=== PATIENT | female | born 1985 | race Caucasian/White ===

== ENCOUNTER 2017-02-11 05:51 | Emergency (ER) | payer OTHER ==
[~2017-02-11] VITALS: Ht 160 cm; Wt 63.5 kg
[2017-02-11 05:55] VITALS: BP 126/98
== END 2017-02-11 06:23 | disposition home or self-care (01) ==
LOC: ER 05:51
DX: R09.89 Other specified symptoms and signs involving the circulatory and respiratory systems (principal); J45.909 Unspecified asthma, uncomplicated; F17.200 Nicotine dependence, unspecified, uncomplicated; B19.20 Unspecified viral hepatitis C without hepatic coma
CPT/HCPCS: 99281; A4606; Z7610; Z7502

== ENCOUNTER 2017-05-14 18:25 | Inpatient (IN) | payer OTHER ==
[~2017-05-14] VITALS: Ht 160 cm; Wt 63.5 kg
--- NOTE | 2017-05-14 18:25 | NUR ---
BIB RA 38 FROM HOME C/O RLQ AND LLQ ABD PAIN X 3DAYS +NAUSEA - VOMITING PT VERBALIZED "TOOK 15 BABY ASPIRIN AND LITTLE BIT OF METH"
--- NOTE | 2017-05-14 18:40 | NUR ---
RAC #20 IV ACCESS BLOOD SAMPLE COLLECTED SENT TO LAB
[2017-05-14] MEDS ORDERED: KETOROLAC TROMETHAMINE 15 MG/ML VIAL ONE (18:44)
[2017-05-14 18:47] LABS: BASOPHILS # (AUTO) 0.4 /CMM (0.0-0.2); BASOPHILS % (AUTO) 2.2 % (0.0-2.0); EOSINOPHILS # (AUTO) 1.2 /CMM (0.0-0.7); EOSINOPHILS % (AUTO) 7.1 % (0.0-6.0); HEMATOCRIT 43 % (33-45); HEMOGLOBIN 14.3 g/dL (11.5-14.8); LYMPHOCYTES # (AUTO) 1.2 /CMM (0.8-4.8); LYMPHOCYTES % (AUTO) 7.5 % (20.0-44.0); MEAN CORPUSCULAR HEMOGLOBIN 29 PG (26.0-33.0); MEAN CORPUSCULAR HGB CONC 34 g/dl (31.0-36.0); MEAN CORPUSCULAR VOLUME 87 fL (82-100); MONOCYTES % (AUTO) 6.2 % (2.0-12.0); NEUTROPHILS # (AUTO) 12.6 /CMM (1.8-8.9); PLATELET COUNT (AUTO) 212 /CMM (150-450); RDW COEFFICIENT OF VARIATION 12.4 (11.5-15.0); RED BLOOD CELL COUNT(AUTO) 4.93 MIL/uL (4.0-5.2); WHITE BLOOD COUNT (AUTO) 16.4 K/uL (4.3-11.0)
--- NOTE | 2017-05-14 18:48 | NUR ---
URINE SAMPLE COLLECTED SENT TO LAB
--- NOTE | 2017-05-14 18:49 | NUR ---
PT TAKEN TO CT SCAN VIA WC
[2017-05-14 18:57] LABS: CALCIUM, SERUM 8.2 mg/dL (8.5-10.1); CREATININE 0.8 mg/dL (0.6-1.3)
[2017-05-14] MEDS ORDERED: SODIUM BICARBONATE SYR 50 MEQ/50 ML DISP.SYRIN IV ONE (19:00)
[2017-05-14] MEDS ORDERED: KETOROLAC TROMETHAMINE INJ 30 MG/ML VIAL IV ONE (19:00)
[2017-05-14] MEDS ORDERED: IV NS 0.9% 1,000 ML BAG IV ONE ×2 (19:00→19:30)
[2017-05-14 19:03] LABS: ALBUMIN 3.3 g/dL (3.4-5.0); BILIRUBIN,DIRECT 0.1 mg/dL (0.0-0.2); BILIRUBIN,TOTAL 0.5 mg/dL (0.2-1.0); TOTAL PROTEIN, SERUM 7.6 g/dL (6.4-8.2)
[2017-05-14 19:05] LABS: APPEARANCE,URINE Clear (CLEAR); BILIRUBIN,URINE Negative (NEGATIVE); BLOOD, URINE Moderate Ery/uL (NEGATIVE); COLOR,URINE Yellow (YELLOW); KETONES,URINE Trace (NEGATIVE); LEUKOCYTE ESTERASE ,URINE Moderate (NEGATIVE); NITRITE, URINE Negative (NEGATIVE); PROTEIN,URINE 30 mg/dl (NEGATIVE); UGLUCOSE Negative (NEGATIVE); UROBILINOGEN,URINE 0.2 EU/dL (0.2)
[2017-05-14 19:06] LABS: PREGNANCY TEST URINE QUAL NEGATIVE (NEGATIVE)
--- NOTE | 2017-05-14 19:10 | NUR ---
CALLED PHARMACY NO ANSWER FOR SODIUM BICARB FAXED TO NURSING MEDICAL RECORDS ANALYST
--- NOTE | 2017-05-14 19:15 | NUR ---
DIRECTOR VIDEO AT BEDSIDE
[2017-05-14 19:16] LABS: ALBUMIN 3.4 g/dL (3.4-5.0); BILIRUBIN,DIRECT 0.1 mg/dL (0.0-0.2); BILIRUBIN,TOTAL 0.4 mg/dL (0.2-1.0); TOTAL PROTEIN, SERUM 7.6 g/dL (6.4-8.2)
--- NOTE | 2017-05-14 19:16 | NUR ---
GAVE REPORT TO SARAH FOR DOREEN
[2017-05-14 19:18] LABS: ABG BASE EXCESS -2.1 mmol/L; ABG OXYGEN SATURATION 97.1 % (92.0-98.5); ABG PCO2 28.2 mmHg (35.0-45.0); ABG PH 7.472 (7.350-7.450); ABG PO2 93.7 mmHg (75.0-100.0); AaDO2 22.3 mmHg; COHb 0.8 % (0.5-1.5); MetHb 0.3 % (0.0-1.5); SITE, ABG Right Radial; VENT MODE, BG Room Air
[2017-05-14 19:24] LABS: BACTERIA,URINE Moderate /HPF (None Seen); SQUAMOUS EPITHELIAL CELL,UR Moderate /HPF (None Seen); WBC,URINE 21-50 /HPF (0-3)
--- NOTE | 2017-05-14 19:27 | NUR ---
SPOKE WITH ALYCIA AT POISON CONTROL. HE RECOMMENDS REPEATING SALICYLATE Q 3-4 HOURS. IF DOWNWARD TREND IS NOTED AND SYMPTOMS IMPROVE, PT SHOULD BE FINE FOR DISCHARGE. SHOULD SALICYLATE LEVELS INCREASE ALKALIZING URINE MAY PROVIDE BENEFIT.
--- NOTE | 2017-05-14 19:28 | NUR ---
REPORT RECEIVED BY JERRY RODRIGUEZ FOR DOREEN.
[2017-05-14] MEDS ORDERED: CEFTRIAXONE 1GM BAG (ER ONLY) 50 ML IV ONE (19:38)
--- NOTE | 2017-05-14 19:50 | NUR ---
CHANDLER PIEDRA AT BEDSIDE SPEAKING TO PT REGARDING ADMISSION.
--- NOTE | 2017-05-14 19:52 | NUR ---
CALLED DEX FOR READ ON CT
--- NOTE | 2017-05-14 19:53 | NUR ---
TELE 102
[2017-05-14] MEDS ORDERED: CEFTRIAXONE 1GM BAG (ER ONLY) 1 GM/50 ML PIGGYBACK IV ONE (20:00)
--- NOTE | 2017-05-14 20:03 | NUR ---
DR. GREEN SPEAKING TO PT REGARDING RESULTS.
--- NOTE | 2017-05-14 20:05 | NUR ---
BED CHANGED TO 111-1 TELE
[2017-05-14] MEDS ORDERED: DICYCLOMINE HCL INJ 20 MG/2 ML AMPUL IM ONE ×2 (20:09→20:30)
[2017-05-14 20:34] VITALS: BP 107/70
[2017-05-14] MEDS ORDERED: ZOLPIDEM TARTRATE 5 MG TABLET PO PRN (21:00)
[2017-05-14] MEDS ORDERED: ENOXAPARIN SODIUM 40 MG/0.4 ML DISP.SYRIN SQ SCH (21:00)
[2017-05-14] MEDS ORDERED: ONDANSETRON HCL/PF 4 MG/2 ML VIAL IVP PRN (21:00)
[2017-05-14] MEDS ORDERED: MAGNESIUM HYDROXIDE 30 ML UDC PO PRN (21:00)
[2017-05-14] MEDS ORDERED: MAG HYDROX/AL HYDROX/SIMETH 30 ML UDC PO PRN (21:00)
[2017-05-14] MEDS ORDERED: MORPHINE SULFATE INJ 2 MG/ML DISP.SYRIN IV PRN (21:00)
[2017-05-14] MEDS ORDERED: ACETAMINOPHEN 325 MG TABLET PO PRN (21:00)
[2017-05-14] MEDS ORDERED: HYDROCODONE/APAP 5/325MG 1 EACH TABLET PO PRN (21:00)
[2017-05-14] MEDS ORDERED: MORPHINE SULFATE INJ 4 MG/ML DISP.SYRIN ONE (21:10)
[2017-05-14] MEDS ORDERED: ENOXAPARIN SODIUM 40 MG/0.4 ML DISP.SYRIN SQ ONE (21:11)
[2017-05-14] MEDS: IV NS 0.9% 1,000 ML IV PRN (21:11)
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
[2017-05-15] VITALS: BP_SYST 106; BP_SYST 107; BP_DIAS 68; BP_DIAS 69
--- NOTE | 2017-05-15 00:09 | NUR ---
TRANSPORTATION MECHANIC: PT COMFORTABLY SLEEPING, NO DISTRESS, O2 SAT 100% ON ROOM AIR. PAIN SCORE 4/10, MORPHINE 4 MG IV PRN GIVEN AT 2114. RECHECKED SALICYLATES LEVEL 18.6 TRENDING DOWN FROM PREVIOUS LEVEL . IV FLUID NS AT 125 ML/HR ONGOING. KEEP MONITORING...
[2017-05-15] MEDS ORDERED: ACETAMINOPHEN 325 MG TABLET ONE (00:20)
[2017-05-15 04:00] VITALS: BP_SYST 104; BP_SYST 107; BP_DIAS 69
[2017-05-15 07:16] LABS: BASOPHILS % (AUTO) 0.2 % (0.0-2.0); EOSINOPHILS # (AUTO) 0.4 /CMM (0.0-0.7); EOSINOPHILS % (AUTO) 2.7 % (0.0-6.0); HEMATOCRIT 37 % (33-45); HEMOGLOBIN 12.8 g/dL (11.5-14.8); LYMPHOCYTES # (AUTO) 1.9 /CMM (0.8-4.8); LYMPHOCYTES % (AUTO) 13.7 % (20.0-44.0); MEAN CORPUSCULAR HEMOGLOBIN 30 PG (26.0-33.0); MEAN CORPUSCULAR HGB CONC 34 g/dl (31.0-36.0); MEAN CORPUSCULAR VOLUME 87 fL (82-100); MONOCYTES # (AUTO) 0.9 /CMM (0.1-1.30); MONOCYTES % (AUTO) 6.3 % (2.0-12.0); NEUTROPHILS # (AUTO) 10.7 /CMM (1.8-8.9); NEUTROPHILS % (AUTO) 77.1 % (43.0-81.0); PLATELET COUNT (AUTO) 177 /CMM (150-450); RED BLOOD CELL COUNT(AUTO) 4.33 MIL/uL (4.0-5.2); WHITE BLOOD COUNT (AUTO) 13.9 K/uL (4.3-11.0)
[2017-05-15 07:34] LABS: CALCIUM, SERUM 7.5 mg/dL (8.5-10.1); CREATININE 0.6 mg/dL (0.6-1.3); MAGNESIUM 1.5 mg/dL (1.8-2.4); PHOSPHORUS 3.5 mg/dL (2.5-4.9); POTASSIUM 3.1 mmol/L (3.5-5.1)
--- NOTE | 2017-05-15 07:43 | NUR ---
INITIAL HUMAN RESOURCES OPERATIONS MANAGER NOTE RCVD PT AWAKE AND ALERT SHOWING NO S/O DISTRESS OR C/O PAIN. SR ON TELE HR 65. ON RA WITH GOOD SATURATION. IV SITE C/D/I/PATENT. IVF INFUSING NO S/O INFILTRATION/PHLEBITIS OBSERVED. WILL CONTINUE TO MONITOR PT FOR SAFETY AND COMFORT. CALL LIGHT WITHIN REACH. BED IN LOW AND LOCKED POSITION.
[2017-05-15 08:00] VITALS: BP 101/70
[2017-05-15] MEDS ORDERED: CEFTRIAXONE 1 G in IV D5W 50 ML IV SCH (09:00)
[2017-05-15] MEDS: IV NS 0.9% 1,000 ML IV PRN (09:17)
--- NOTE | 2017-05-15 10:41 | NUR ---
TIE BUYER NOTE DR. DONG INFORMED OF PT'S DECREASED K AND MG LEVEL THIS AM. MD WILL REVIEW RESULTS AND ORDER NEEDED.
[2017-05-15] MEDS ORDERED: SODIUM BICARBONATE SYR 50 MEQ/50 ML DISP.SYRIN IV ONE (11:21)
[2017-05-15] MEDS: Magnesium 1GM/D5W 100ML PREMIX 100 ML IV SCH ×2 (11:46→12:58)
[2017-05-15] MEDS: POTASSIUM CL. PREMIX PERIPHER. 50 ML IV SCH ×4 (11:49→16:14)
[2017-05-15 12:00] VITALS: BP_SYST 101; BP_SYST 95; BP_DIAS 64; BP_DIAS 70
[2017-05-15] MEDS ORDERED: MAGNESIUM OXIDE 400 MG TABLET PO ONE (12:00)
[2017-05-15] MEDS ORDERED: POTASSIUM CHLORIDE 20 MEQ TAB.PRT.SR PO ONE (12:00)
[2017-05-15 16:00] VITALS: BP 105/64
--- NOTE | 2017-05-15 18:39 | NUR ---
FINAL SHOW DESIGN SUPERVISOR NOTE PT D/C HOME ACCOMPANIED BY FRIEND TRANSPORTED VIA [facility]I PROVIDED BY HOSPITAL. PT IN STABLE CONDITION, AMBULATORY WITH STEADY GAIT. VITAL SIGNS STABLE. IV ACCESS DISCONTINUED, CATHETER TIP INTACT. PRESSURE DRESSING APPLIED. PT INSTRUCTED TO SEE PRIMARY WITHIN ONE WEEK FROM TODAY. PT ACKNOWLEDGED INFORMATION. BELONGINGS SHEET SIGNED BY PT WHO STATES THAT NOTHING WAS MISSING.
== END 2017-05-15 18:33 | disposition home or self-care (01) | DRG 812 ==
LOC: ER 18:27 → TELE1 20:11
PROVIDERS: ADMIT Nurse Practitioner Acute Care; ATTEND Nurse Practitioner Acute Care
DX: T39.011A Poisoning by aspirin, accidental (unintentional), initial encounter (principal); N30.00 Acute cystitis without hematuria; Y92.89 Other specified places as the place of occurrence of the external cause; B96.89 Other specified bacterial agents as the cause of diseases classified elsewhere; J45.909 Unspecified asthma, uncomplicated; F15.10 Other stimulant abuse, uncomplicated; N64.4 Mastodynia; Z86.19 Personal history of other infectious and parasitic diseases; F17.200 Nicotine dependence, unspecified, uncomplicated
CPT/HCPCS: 36415; 36600; 71010-TC; 71250-TC; 80048-TC; 80076-TC; 80305; 81000-TC; 83690-TC; 83735-TC; 84100-TC; 84703-TC; 85025-TC; 87081-TC; 87086-TC; A4606; G0480; J0500; J0696; J1650; J1885; J2270; J3475; J3480; J3490; J7030; J7060; Z7610

== ENCOUNTER 2017-10-31 03:28 | Emergency (ER) | payer OTHER ==
[~2017-10-31] VITALS: Ht 160 cm; Wt 67.1 kg
[2017-10-31] MEDS ORDERED: ASPIRIN 325 MG TABLET PO ONE (05:30)
--- NOTE | 2017-10-31 05:30 | NUR ---
BB SELF WITH C/O CHEST PAIN. PT STATES FEVER 99.5, SORE THROAT X 1 1/2 WK RT RIB PAIN, WORSE ON MOVEMENT. RESP EVEN AND NONLABORED. SKIN WARM AND PINK. NO S/S OF ACUTE DISTRESS NOTED. VSS. PLACED ON TARIFF PUBLISHING AGENT. AWAITING MD PAULSON.
--- NOTE | 2017-10-31 05:36 | NUR ---
GENERATOR MECHANIC BEDSIDE FOR CHEST X-RAY
[2017-10-31] MEDS ORDERED: ASPIRIN 325 MG TABLET ONE (05:37)
[2017-10-31 06:00] LABS: BASOPHILS # (AUTO) 0.1 /CMM (0.0-0.2); BASOPHILS % (AUTO) 1.1 % (0.0-2.0); EOSINOPHILS # (AUTO) 0.5 /CMM (0.0-0.7); EOSINOPHILS % (AUTO) 5.9 % (0.0-6.0); HEMATOCRIT 35 % (33-45); LYMPHOCYTES # (AUTO) 1.6 /CMM (0.8-4.8); MEAN CORPUSCULAR HEMOGLOBIN 28 PG (26.0-33.0); MEAN CORPUSCULAR HGB CONC 34 g/dl (31.0-36.0); MEAN CORPUSCULAR VOLUME 83 fL (82-100); MONOCYTES # (AUTO) 1.1 /CMM (0.1-1.30); MONOCYTES % (AUTO) 12.4 % (2.0-12.0); NEUTROPHILS # (AUTO) 5.3 /CMM (1.8-8.9); NEUTROPHILS % (AUTO) 61.6 % (43.0-81.0); PLATELET COUNT (AUTO) 277 /CMM (150-450); RDW COEFFICIENT OF VARIATION 15.1 (11.5-15.0); RED BLOOD CELL COUNT(AUTO) 4.25 MIL/uL (4.0-5.2); WHITE BLOOD COUNT (AUTO) 8.5 K/uL (4.3-11.0)
[2017-10-31 06:18] LABS: CALCIUM, SERUM 8.4 mg/dL (8.5-10.1); CARBON DIOXIDE 26 mmol/L (21-32); CHLORIDE 108 mmol/L (98-107); CREATININE 0.7 mg/dL (0.6-1.3); GLUCOSE 94 mg/dL (74-106); POTASSIUM 3.6 mmol/L (3.5-5.1); SODIUM SERUM 141 mmol/L (136-145); UREA NITROGEN, BLOOD 19 mg/dL (7-18)
[2017-10-31 06:21] LABS: D-DIMER 0.74 mg/L(FEU (0.17-0.50)
[2017-10-31 06:23] LABS: ALANINE AMINOTRANSFERASE 35 U/L (12-78); ALBUMIN 2.9 g/dL (3.4-5.0); ALKALINE PHOSPHATASE 92 U/L (46-116); ASPARTATE AMINOTRANSFERASE 26 U/L (15-37); BILIRUBIN,DIRECT 0.1 mg/dL (0.0-0.2); BILIRUBIN,TOTAL 0.3 mg/dL (0.2-1.0); TOTAL PROTEIN, SERUM 8.3 g/dL (6.4-8.2)
[2017-10-31 06:25] LABS: TROPONIN I < 0.017 ng/mL (0.00-0.056)
--- NOTE | 2017-10-31 07:43 | NUR ---
IV removed. Catheter intact and site benign. Pressure and 4x4 applied to site. No bleeding noted. Patient does not wish to proceed with medical care recommended by (LUZ ELENA ). Patient given information related to possible complications, up to and including , which could occur as a result of leaving the hospital at this time. Patient verbalizes understanding of risks involved due to leaving against medical advice. Patient has signed AMA form. PT AMBULATED OUT OF ER WITH STEADY GAIT NOTED.
[2017-10-31 07:46] VITALS: BP 132/87
== END 2017-10-31 07:47 | disposition left against medical advice (07) ==
LOC: ER 03:28
DX: R07.9 Chest pain, unspecified (principal); F15.10 Other stimulant abuse, uncomplicated; B19.20 Unspecified viral hepatitis C without hepatic coma; J45.909 Unspecified asthma, uncomplicated; R56.9 Unspecified convulsions; F17.200 Nicotine dependence, unspecified, uncomplicated; Z79.82 Long term (current) use of aspirin; Z86.711 Personal history of pulmonary embolism
CPT/HCPCS: 36415; 71045-TC; 80048-TC; 80076-TC; 84484-TC; 84703-TC; 85025-TC; 85378-TC; 85730-TC; 86403-TC; 87070-TC; A4606; Z7610

== ENCOUNTER 2018-01-18 12:34 | Emergency (ER) | payer OTHER ==
[~2018-01-18] VITALS: Ht 160 cm; Wt 59.0 kg
[2018-01-18 12:34] VITALS: BP 124/71
[2018-01-18] MEDS ORDERED: predniSONE 20 MG TABLET ONE (13:24)
[2018-01-18] MEDS: predniSONE 20 MG TABLET PO ONE (13:27)
[2018-01-18] MEDS ORDERED: IPRATROPIUM NEB FS 0.5 MG/2.5 ML AMPUL.NEB ONE (13:34)
[2018-01-18] MEDS ORDERED: ALBUTEROL FS 2.5 MG/3 ML VIAL.NEB ONE (13:34)
[2018-01-18] MEDS: ALBUTEROL FS 2.5 MG/3 ML VIAL.NEB NEB ONE (13:37)
[2018-01-18] MEDS: IPRATROPIUM NEB FS 0.5 MG/2.5 ML AMPUL.NEB NEB ONE (13:37)
== END 2018-01-18 14:13 | disposition home or self-care (01) ==
LOC: ER 12:36
DX: J45.901 Unspecified asthma with (acute) exacerbation (principal); F17.210 Nicotine dependence, cigarettes, uncomplicated; Z86.19 Personal history of other infectious and parasitic diseases
CPT/HCPCS: A4606; Z7610

== ENCOUNTER 2018-02-28 09:52 | Emergency (ER) | payer OTHER ==
[~2018-02-28] VITALS: Ht 162.6 cm; Wt 61.7 kg
[2018-02-28 10:01] VITALS: BP 132/70
== END 2018-02-28 10:54 | disposition home or self-care (01) ==
LOC: ER 10:07
DX: R09.89 Other specified symptoms and signs involving the circulatory and respiratory systems (principal); F19.10 Other psychoactive substance abuse, uncomplicated; J45.909 Unspecified asthma, uncomplicated; F17.200 Nicotine dependence, unspecified, uncomplicated; Z86.19 Personal history of other infectious and parasitic diseases
CPT/HCPCS: 73080-TC; A4606; Z7610

== ENCOUNTER 2018-04-02 08:36 | Emergency (ER) | payer OTHER ==
[~2018-04-02] VITALS: Ht 162.6 cm; Wt 62.6 kg
[2018-04-02 08:36] VITALS: BP 135/68
== END 2018-04-02 08:52 | disposition home or self-care (01) ==
LOC: ER 08:44
DX: L03.012 Cellulitis of left finger (principal); B95.7 Other staphylococcus as the cause of diseases classified elsewhere; J45.909 Unspecified asthma, uncomplicated; F17.200 Nicotine dependence, unspecified, uncomplicated; Z86.19 Personal history of other infectious and parasitic diseases; Z86.711 Personal history of pulmonary embolism
CPT/HCPCS: 99283; A4606; Z7610

== ENCOUNTER 2018-04-04 01:46 | Emergency (ER) | payer OTHER ==
[~2018-04-04] VITALS: Ht 160 cm; Wt 62.6 kg
[2018-04-04 02:04] VITALS: BP 130/78
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
== END 2018-04-04 03:04 | disposition left against medical advice (07) ==
LOC: ER 01:47
DX: Z53.21 Procedure and treatment not carried out due to patient leaving prior to being seen by health care provider (principal)
CPT/HCPCS: A4606; Z7610

== ENCOUNTER 2018-06-09 21:29 | Emergency (ER) | payer OTHER ==
[~2018-06-09] VITALS: Ht 160 cm; Wt 61.2 kg
--- NOTE | 2018-06-09 21:33 | NUR ---
Called for triage, no answer.
--- NOTE | 2018-06-09 22:10 | NUR ---
PT BIBSELF FOR SWELLING, PAIN, AND TENDERNESS ON LABIA X3 DAYS. PT AAOX4. RESPIRATIONS EVEN AND UNLABORED. PT APPEARS UNCOMFORTABLE. DENIES SOB, NVD. VSS. PT IN GOWN AND WAITING MD EVALUATION.
[2018-06-09] MEDS ORDERED: HYDROCODONE/APAP 5/325MG 1 EACH TABLET ONE (22:26)
[2018-06-09] MEDS ORDERED: IBUPROFEN 600 MG TABLET PO ONE ×2 (22:27→22:30)
[2018-06-09] MEDS ORDERED: HYDROCODONE/APAP 5/325MG 1 EACH TABLET PO ONE (22:30)
--- NOTE | 2018-06-09 23:00 | NUR ---
I&D SET UP BY BEDSIDE. PT SIGNED CONSENT FORM
--- NOTE | 2018-06-09 23:30 | NUR ---
PT REQUESTING MODERATE SEDATION FOR INCISION AND DRAINAGE PROCEDURE. AWARE
[2018-06-09] MEDS ORDERED: LIDOCAINE 1%-EPI 1:100,000 20 ML VIAL ONE (23:37)
[2018-06-09] MEDS ORDERED: KETAMINE HCL (500MG/10ML) 50 MG/ML VIAL ONE (23:57)
[2018-06-10] MEDS ORDERED: LIDOCAINE 1%-EPI 1:100,000 50 ML VIAL IJ ONE
--- NOTE | 2018-06-10 00:06 | NUR ---
MD AND RT AT BEDSIDE FOR INCISION AND DRAINAGE PROCEDURE WITH MODERATE SEDATION
--- NOTE | 2018-06-10 00:25 | NUR ---
PT COMFORTABLE AND ON CONTINUOUS CARDIAC MONITORING. RT AT BEDSIDE.
[2018-06-10] MEDS ORDERED: ONDANSETRON HCL/PF 4 MG/2 ML VIAL ONE (00:32)
[2018-06-10] MEDS ORDERED: KETAMINE HCL (500MG/10ML) 50 MG/ML VIAL IV ONE (01:00)
[2018-06-10] MEDS ORDERED: ONDANSETRON 4 MG TAB.RAPDIS ONE (01:24)
[2018-06-10] MEDS ORDERED: ONDANSETRON 4 MG TAB.RAPDIS SL ONE (01:30)
[2018-06-10] MEDS ORDERED: ONDANSETRON HCL/PF - ER 4 MG/2 ML VIAL IV ONE (01:30)
--- NOTE | 2018-06-10 04:20 | NUR ---
D/C INSTRUCTIONS GIVEN AND EXPLAINED TO PATIENT. PATIENT ABLE TO AMBULATE WITH STEADY GAIT IN STABLE CONDITION
[2018-06-10 04:28] VITALS: BP 136/90
== END 2018-06-10 04:29 | disposition home or self-care (01) ==
LOC: ER 21:32
DX: N75.1 Abscess of Bartholin's gland (principal); J45.909 Unspecified asthma, uncomplicated; F17.210 Nicotine dependence, cigarettes, uncomplicated; Z86.19 Personal history of other infectious and parasitic diseases; Z98.890 Other specified postprocedural states
CPT/HCPCS: A4606; A6402; J2405; J3490; Q0162; Z7610

== ENCOUNTER 2018-11-03 07:17 | Emergency (ER) | payer OTHER ==
[~2018-11-03] VITALS: Ht 167.6 cm; Wt 61.2 kg
--- NOTE | 2018-11-03 07:24 | NUR ---
patient presented to the ER c/o abd pain x 2 days, -v, +N, +diarrhea. on room air, breathing evenly and unlabored. connected to the monitor and pulse ox. kept comfortable. will continue to monitor accordingly.
[2018-11-03] MEDS ORDERED: ONDANSETRON HCL/PF 4 MG/2 ML VIAL ONE (07:46)
[2018-11-03] MEDS ORDERED: LOPERAMIDE HCL (2 MG CAP) 2 MG CAPSULE PO ONE ×3 (07:46→10:13)
[2018-11-03] MEDS ORDERED: KETOROLAC TROMETHAMINE 15 MG/ML VIAL ONE (07:46)
[2018-11-03 07:50] LABS: BASOPHILS # (AUTO) 0.1 /CMM (0.0-0.2); BASOPHILS % (AUTO) 0.7 % (0.0-2.0); EOSINOPHILS % (AUTO) 5.6 % (0.0-6.0); HEMATOCRIT 44 % (33-45); HEMOGLOBIN 14.8 g/dL (11.5-14.8); LYMPHOCYTES # (AUTO) 1.9 /CMM (0.8-4.8); LYMPHOCYTES % (AUTO) 18.8 % (20.0-44.0); MEAN CORPUSCULAR HGB CONC 34 g/dl (31.0-36.0); MEAN CORPUSCULAR VOLUME 88 fL (82-100); MONOCYTES # (AUTO) 0.8 /CMM (0.1-1.30); MONOCYTES % (AUTO) 8.3 % (2.0-12.0); NEUTROPHILS # (AUTO) 6.6 /CMM (1.8-8.9); NEUTROPHILS % (AUTO) 66.6 % (43.0-81.0); PLATELET COUNT (AUTO) 227 /CMM (150-450); WHITE BLOOD COUNT (AUTO) 9.9 K/uL (4.3-11.0)
[2018-11-03 07:57] LABS: CALCIUM, SERUM 8.9 mg/dL (8.5-10.1); CREATININE 0.8 mg/dL (0.6-1.3)
[2018-11-03] MEDS ORDERED: KETOROLAC TROMETHAMINE INJ 30 MG/ML VIAL IV ONE (08:00)
[2018-11-03] MEDS ORDERED: IV NS 0.9% 1,000 ML BAG IV ONE (08:00)
[2018-11-03] MEDS ORDERED: ONDANSETRON HCL/PF 4 MG/2 ML VIAL IVP ONE (08:00)
[2018-11-03 08:03] LABS: ALBUMIN 3.7 g/dL (3.4-5.0); BILIRUBIN,DIRECT 0.1 mg/dL (0.0-0.2); BILIRUBIN,TOTAL 0.4 mg/dL (0.2-1.0)
[2018-11-03] MEDS ORDERED: IOHEXOL-300 100 ML VIAL IV ONE (08:28)
[2018-11-03 08:29] LABS: APPEARANCE,URINE SL CLOUDY (CLEAR); BILIRUBIN,URINE 1+ (NEGATIVE); BLOOD, URINE NEGATIVE Ery/uL (NEGATIVE); COLOR,URINE YELLOW (YELLOW); KETONES,URINE NEGATIVE (NEGATIVE); LEUKOCYTE ESTERASE ,URINE 1+ (NEGATIVE); NITRITE, URINE NEGATIVE (NEGATIVE); PROTEIN,URINE NEGATIVE (NEGATIVE); UGLUCOSE NEGATIVE (NEGATIVE); UROBILINOGEN,URINE 0.2 EU/dL (0.2)
[2018-11-03] MEDS ORDERED: CT SWABBABLE VALVE TRANS SET 1 EA INFUS.SET MC ONE (08:29)
[2018-11-03 08:41] LABS: BACTERIA,URINE None seen /HPF (None Seen); RBC,URINE NONE SEEN /HPF (0-2); SQUAMOUS EPITHELIAL CELL,UR Few /HPF (None Seen); WBC,URINE 21-50 /HPF (0-3)
--- NOTE | 2018-11-03 08:48 | NUR ---
PT TO RADIOLOGY FOR ABDOMINAL CT SCAN VIA [facility].
[2018-11-03] MEDS ORDERED: CEFTRIAXONE 1 G in IV D5W 50 ML IV ONE (09:30)
[2018-11-03] MEDS ORDERED: CEFTRIAXONE 1GM BAG (ER ONLY) 50 ML IV ONE (09:36)
[2018-11-03 10:16] VITALS: BP 134/92
--- NOTE | 2018-11-03 10:17 | NUR ---
Patient discharged to home in stable condition. Written and verbal after care instructions given. Patient verbalizes understanding of instruction.
== END 2018-11-03 10:16 | disposition home or self-care (01) ==
LOC: ER 07:21
DX: N39.0 Urinary tract infection, site not specified (principal); R11.2 Nausea with vomiting, unspecified; R19.7 Diarrhea, unspecified; J45.909 Unspecified asthma, uncomplicated; F10.10 Alcohol abuse, uncomplicated; F17.210 Nicotine dependence, cigarettes, uncomplicated; Y90.9 Presence of alcohol in blood, level not specified; Z86.19 Personal history of other infectious and parasitic diseases; Z98.890 Other specified postprocedural states; Z59.0 Homelessness
CPT/HCPCS: 36415; 74177; 80048; 80076; 81001; 83690; 84703; 85025; 87077; 87086; 87186; 96365; 96375; 99284; A4606; J0696 ×2; J1885; J2405; J7030; J7060; Q9967; 81000-TC

== ENCOUNTER 2018-12-18 03:40 | Emergency (ER) | payer OTHER ==
[~2018-12-18] VITALS: Ht 160 cm; Wt 62.6 kg
[2018-12-18 04:01] VITALS: BP 121/74
[2018-12-18 05:24] LABS: APPEARANCE,URINE Slightly Cloudy (CLEAR); BILIRUBIN,URINE Negative (NEGATIVE); BLOOD, URINE Trace-intact Ery/uL (NEGATIVE); COLOR,URINE Yellow (YELLOW); KETONES,URINE Negative (NEGATIVE); LEUKOCYTE ESTERASE ,URINE Small (NEGATIVE); NITRITE, URINE Negative (NEGATIVE); PROTEIN,URINE 30 mg/dl (NEGATIVE); UGLUCOSE Negative (NEGATIVE)
[2018-12-18] MEDS ORDERED: FAMOTIDINE/PF INJ 20 MG/2 ML VIAL IV ONE (05:30)
[2018-12-18] MEDS ORDERED: PHENAZOPYRIDINE HCL 200 MG TABLET PO ONE (05:30)
[2018-12-18] MEDS ORDERED: CEFTRIAXONE 1GM BAG (ER ONLY) 1 GM/50 ML PIGGYBACK IV ONE (05:30)
[2018-12-18] MEDS ORDERED: ALBUTEROL FS 2.5 MG/3 ML VIAL.NEB NEB ONE (05:30)
[2018-12-18] MEDS ORDERED: IV NS 0.9% 1,000 ML BAG IV ONE (05:30)
[2018-12-18] MEDS ORDERED: ONDANSETRON HCL/PF - ER 4 MG/2 ML VIAL IV ONE (05:30)
[2018-12-18] MEDS ORDERED: IPRATROPIUM NEB FS 0.5 MG/2.5 ML AMPUL.NEB NEB ONE (05:30)
[2018-12-18] MEDS ORDERED: ALBUTEROL FS 2.5 MG/3 ML VIAL.NEB ONE (05:41)
[2018-12-18] MEDS ORDERED: IPRATROPIUM NEB FS 0.5 MG/2.5 ML AMPUL.NEB ONE (05:41)
[2018-12-18 05:48] LABS: BACTERIA,URINE Few /HPF (None Seen); SQUAMOUS EPITHELIAL CELL,UR Moderate /HPF (None Seen); TRICHOMONAS,URINE Few /HPF (None Seen); WBC,URINE TOO NUMEROUS TO COUN /HPF (0-3)
[2018-12-18] MEDS ORDERED: PHENAZOPYRIDINE HCL 200 MG TABLET ONE (06:03)
--- NOTE | 2018-12-18 06:24 | NUR ---
PT STATED THAT SHE REALLY WASN'T HOMELESS. PT IS STAYING WITH A FRIEND. PT SIGNED THE HOMELESS WAIVER AND REC'D A HOMELESS RESOURCE PACKET. PT REFUSED FOOD AND CLOTHING. PT AMBULATED OUT WITH A STEADY GAIT. PT STATED THAT HER FRIEND WAS PICKING HER UP.
--- NOTE | 2019-01-24 03:32 | NUR ---
12/18/2018 ER visit Chief Complaint: Patient reported 1) Intermittent chest wall discomfort, and 2) left flank discomfort. HPI: 33 year female patient with pmh of chronic cigarette smoking complained of intermittent 2/10 anterior chest wall discomfort associated with concurrent dry coughing without fever or sputum production. Patient denied exertional or radiating chest pain or pleuritic chest pain or asssociated leg swelling or pain. Patient also reported secondary complaint of left flank discomfort associated with slight epigastric discomfort. Patient denied associated fever or lower abdominal pain. Denied taking medications prior to coming to ER. Review of Systems: Patient reports malaise, denied palpitations or chest pain. Denied sweating or rash. Reported cough, denied sputum. Denied nausea/vomiting/diarrhea. Reported left flank discomfort. Denied diabetes. Denied focal numbness or weakness. Denied bleeding. Denied elev blood sugar. : denied being . Denied depressed thoughts. All other systems were reviewed and are negative except as documented. PMH:hepatitis C, mild chronic asthma Past Family History: Reviewed and not relevant Social History:chronic smoking, denied using drugs Physical Exam: Vital Signs:afebrile General: Non septic appearing Head: Non icteric sclera, extraocular movements intact Neck: Midline trachea, no JVD, supple neck Cardiac: S1S2 Respiratory: Bilateral breath sounds with scattered crackles. Gastrointestinal: Nondistended. +Bowel Sounds. No focal tenderness or guarding to deep palpation. No tenderness at right lower quadrant McBurney's point. No flank CVA tenderness Musculoskeletal: minimal discomfort to palpation at left flank. No midline spinal tenderness. Extremities: No calf swelling or tenderness. No bony deformities Psychiatric: AOx3 Neurological: Grossly non-focal Integumentary/ Skin: No rash MDM DDx cough URI/ acute bronchitis mild chronic asthma pneumonia in chronic smoker Flank pain Concern for renal colic/ UTI/ acute pyelonoephritis Assessment: cough URI/ acute bronchitis ED orders included CXR because of concern if pneumonia in chronic smoker could be contributory- I reviewed and agreed with radiologist's reading of CXR did not detect infiltrate to indicate pneumonia. Patient reported relief after albuterol and atrovent nebulizer treatment. Patient denied family history of early MN or sudden cardiac . Patient denied exertional or radiating chest pain, or associated cardiac symptoms such as diaphoresis, shortness of breath, nausea, or fainting. EKG was ordered by and reviewed by EM physician, and shows normal sinus rhythm with regular ventricular rate, and without acute st changes. This is not clinically consistent with an acute STEMI at this exact time. Plan: ED orders included IV, IV pepcid and zofran and 1L NS. ED orders included albuterol and atrovent neb treatment for chronic asthmatic. Concern for renal colic/ UTI/ acute pyelonoephritis- ED orders included urine culture and IV ceftriaxone and oral pyridium and prescription for ceftin/cefuroroxime antibiotic PO BID [id number] and pyridium BID x2 days for discomfort from acute UTI. At time of discharge, patient reported resolved symptoms, and was AOx3, speaking clearly withouut slurred speech and ambulatory without difficulty and stated wishes to leave ER with prescriptions and outpatient followup. Final diagnoses: 1) Dyspnea/ Acute Bronchitis 2) Acute left flank pain/ Acute UTI Flank pain, epigastric discomfort ED orders included UA showed signs of infection including elevated wbc, bacteria and leuk esterase. Plan: ED orders included IV, IV pepcid and zofran and 1L NS. ED orders included albuterol and atrovent neb treatment for chronic asthmatic. Concern for renal colic/ UTI/ acute pyelonoephritis- ED orders included urine culture and IV ceftriaxone and oral pyridium and prescription for ceftin/cefuroroxime antibiotic PO BID [id number] and pyridium BID x2 days for discomfort from acute UTI. At time of discharge, patient reported resolved symptoms, and was AOx3, speaking clearly withouut slurred speech and ambulatory without difficulty and stated wishes to leave ER with prescriptions and outpatient followup. Final diagnoses: 1) Dyspnea/ Acute Bronchitis 2) Acute left flank discomfort/ Acute UTI
== END 2018-12-18 06:39 | disposition home or self-care (01) ==
LOC: ER 03:47
DX: J45.909 Unspecified asthma, uncomplicated (principal); N39.0 Urinary tract infection, site not specified; R19.7 Diarrhea, unspecified; R06.00 Dyspnea, unspecified; F17.210 Nicotine dependence, cigarettes, uncomplicated; Z87.442 Personal history of urinary calculi
CPT/HCPCS: 71045-TC; 81000-TC; 84703-TC; 87086-TC; J2405

== ENCOUNTER 2019-03-10 23:18 | Emergency (ER) | payer OTHER ==
--- NOTE | 2019-03-10 23:25 | NUR ---
CALLED TO TRIAGE NO ANSWER
--- NOTE | 2019-03-10 23:30 | NUR ---
CALLED TO TRIAGE NO ANSWER
--- NOTE | 2019-03-10 23:35 | NUR ---
CALLED TO TRIAGE NO ANSWER
== END 2019-03-10 23:40 | disposition left against medical advice (07) ==
LOC: ER 23:18
DX: R07.81 Pleurodynia (principal); Z53.21 Procedure and treatment not carried out due to patient leaving prior to being seen by health care provider

== ENCOUNTER 2019-03-15 01:14 | Emergency (ER) | payer OTHER ==
[~2019-03-15] VITALS: Ht 160 cm; Wt 62.6 kg
[2019-03-15 01:30] VITALS: BP 146/89
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
--- NOTE | 2019-03-15 02:12 | NUR ---
XRAY AT BEDSIDE
[2019-03-15] MEDS ORDERED: IBUPROFEN 600 MG TABLET PO ONE ×2 (04:07→04:30)
--- NOTE | 2019-03-15 04:14 | NUR ---
Patient discharged to home in stable condition. Written and verbal after care instructions given. Patient verbalizes understanding of instruction. Pt ambulatory with a steady gait
== END 2019-03-15 04:19 | disposition home or self-care (01) ==
LOC: ER 01:17
DX: S20.211A Contusion of right front wall of thorax, initial encounter (principal); J45.909 Unspecified asthma, uncomplicated; I10 Essential (primary) hypertension; F17.210 Nicotine dependence, cigarettes, uncomplicated; Z86.19 Personal history of other infectious and parasitic diseases; Z98.890 Other specified postprocedural states; V19.88XA Pedal cyclist (driver) (passenger) injured in other specified transport accidents, initial encounter; Y93.89 Activity, other specified; Y92.89 Other specified places as the place of occurrence of the external cause; Y99.8 Other external cause status
CPT/HCPCS: 71045-TC

== ENCOUNTER 2019-05-18 03:12 | Emergency (ER) | payer MEDICAID, OTHER ==
[~2019-05-18] VITALS: Ht 160 cm; Wt 62.6 kg
[2019-05-18 03:15] VITALS: BP 127/84
--- NOTE | 2019-05-18 03:37 | NUR ---
Female fire hazard inspector accompanied female patient for Dr Fan. PATIENT REFUSED TO HAVE A PELVIC EXAM BECAUSE SHE WANTED TO BE SEDATED. PATIENT LEFT W/O TREATMENT.
== END 2019-05-18 03:45 | disposition left against medical advice (07) ==
LOC: ER 03:17
DX: Z53.21 Procedure and treatment not carried out due to patient leaving prior to being seen by health care provider (principal); J45.909 Unspecified asthma, uncomplicated; Z98.890 Other specified postprocedural states; Z86.19 Personal history of other infectious and parasitic diseases

== ENCOUNTER 2019-10-05 01:34 | Emergency (ER) | payer MEDICAID, OTHER ==
[~2019-10-05] VITALS: Ht 170.2 cm; Wt 60.3 kg
[2019-10-05 01:39] VITALS: BP 133/78
[2019-10-05] MEDS ORDERED: DOCUSATE SODIUM LIQ 100 MG/10 ML UDC ONE (02:16)
[2019-10-05] MEDS ORDERED: DOCUSATE SODIUM LIQ 100 MG/10 ML UDC XX ONE (02:30)
--- NOTE | 2019-10-05 02:30 | NUR ---
BIBS WITH PARTNER TO ER BED 12. AAOX4. NO RESP DIDTRESS NOTED. AMBULATORY. C/O R EAR FULLNESS. PER PT IT HAS BEEN GOING ON FOR THE PAST 3 DAY W/ FEELIONG OF FULLNESS, PT STATED " IF I HAVE DIRT IN MY EAR". WAS AT BEDSIDE FOR EVAL. MD MORRIS MCKENZIE
--- NOTE | 2019-10-05 02:48 | NUR ---
AT BEDSIDE FOR EAR IRRIGATION
--- NOTE | 2019-10-05 02:57 | NUR ---
Patient discharged to home in stable condition. Written and verbal after care instructions given. Patient verbalizes understanding of instruction. Pt ambulatory with a steady gait
== END 2019-10-05 02:56 | disposition home or self-care (01) ==
LOC: ER 01:36
DX: H61.23 Impacted cerumen, bilateral (principal); I10 Essential (primary) hypertension; F17.210 Nicotine dependence, cigarettes, uncomplicated; J45.909 Unspecified asthma, uncomplicated; Z86.19 Personal history of other infectious and parasitic diseases; Z98.890 Other specified postprocedural states

== ENCOUNTER 2019-11-15 05:13 | Inpatient (IN) | payer MEDICAID ==
[~2019-11-15] VITALS: Ht 160 cm; Wt 62.6 kg
--- NOTE | 2019-11-15 05:56 | NUR ---
PT CAME TO ER BED 9 C/O LEFT ARM PAIN. PT STATES THAT SHE WAS JUST SLEEPING WHEN SHE NOTICED THAT HER ARM WAS STARTING TO SWELL. WOUND NOTED ON THE LEFT FOREARM WITH PURULENT DRAINAGE. PT STATES THAT SHE WAS ON ANTIBIOTICS 4 DAYS AGO THAT SHE HAD GOTTEN FROM A FRIEND. AAOX4. NO SOB. RADIAL PULSE STRONG AND EQUAL BILATERALLY. BREATHING EVENLY AND UNLABORED.
[2019-11-15] MEDS ORDERED: VANCOMYCIN 1 GM VIAL ONE (05:59)
[2019-11-15] MEDS ORDERED: VANCOMYCIN 1 GM in IV D5W 250 ML IV ONE (06:00)
--- NOTE | 2019-11-15 06:23 | NUR ---
CULTURES AND BLOOD COLLECTED AND SENT TO LAB
[2019-11-15 06:27] LABS: BASOPHILS % (AUTO) 0.4 % (0.0-2.0); EOSINOPHILS % (AUTO) 1.4 % (0.0-6.0); HEMATOCRIT 45 % (33-45); HEMOGLOBIN 15.1 g/dL (11.5-14.8); LYMPHOCYTES # (AUTO) 1.1 /CMM (0.8-4.8); LYMPHOCYTES % (AUTO) 9.1 % (20.0-44.0); MEAN CORPUSCULAR HGB CONC 34 g/dl (31.0-36.0); MEAN CORPUSCULAR VOLUME 88 fL (82-100); MONOCYTES # (AUTO) 1.2 /CMM (0.1-1.30); MONOCYTES % (AUTO) 10.2 % (2.0-12.0); NEUTROPHILS # (AUTO) 9.2 /CMM (1.8-8.9); NEUTROPHILS % (AUTO) 78.9 % (43.0-81.0); PLATELET COUNT (AUTO) 249 /CMM (150-450); RED BLOOD CELL COUNT(AUTO) 5.07 MIL/uL (4.0-5.2); WHITE BLOOD COUNT (AUTO) 11.6 K/uL (4.3-11.0)
[2019-11-15] MEDS ORDERED: PIPERACILLIN /TAZOBACTAM 3.375 G in IV D5W 50 ML IV ONE (06:30)
[2019-11-15 06:32] LABS: CALCIUM, SERUM 8.7 mg/dL (8.5-10.1); CREATININE 0.7 mg/dL (0.6-1.3); POTASSIUM 3.6 mmol/L (3.5-5.1)
--- NOTE | 2019-11-15 07:18 | NUR ---
ASSUME PT CARE. RESTING IN BED W/ INFUSING IV VANCO. ON MONITOR. VSS. WILL CONTINUE TO MONITOR.
--- NOTE | 2019-11-15 10:49 | NUR ---
CALLED SAM SERRANO FOR [facility] FOR TRANSFER UPDATE. STILL WAITING FOR A BED IN [place].
--- NOTE | 2019-11-15 12:18 | NUR ---
REPORT GIVEN TO MAUDE EDWARDS. PT AWAITING TRANSFER TO FLOOR.
[2019-11-15 12:50] VITALS: BP 119/70
--- NOTE | 2019-11-15 12:55 | NUR ---
PT ARRIVED FROM ER AT 1240. REPORT GIVEN BY VEE/JERRY.
[2019-11-15] MEDS ORDERED: HYDROCODONE/APAP 5/325MG 1 EACH TABLET PO PRN (13:00)
[2019-11-15] MEDS ORDERED: ZOLPIDEM TARTRATE 5 MG TABLET PO PRN (13:00)
[2019-11-15] MEDS ORDERED: ACETAMINOPHEN 325 MG TABLET PO PRN (13:00)
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
--- NOTE | 2019-11-15 15:15 | NUR ---
MS RN NOTES SEEN AND EVALUATED BY DR SPRINGER. ORDERED ORTHO CONSULT. CONTACTED CC/PA, AWAITING FOR RESPONSE.
--- NOTE | 2019-11-15 15:47 | NUR ---
Social service consult requested by MD Umana for homelessness. Per notes, pt is a 34-year-old female who developed a cut on left forearm about one week ago, she thinks she fell and that gave her the cut. She developed redness and swelling around the cut along with pain. OPTIONS ADVISOR met with the pt bedside. OPTIONS ADVISOR introduced self, explained the role of SW and purpose of visit. Pt is alert and oriented x 4. Pt appears disheveled. Pt is pleasant during the assessment. Pt reports she is homeless and resides in a tent on [address] in [place]. Pt reports to be homeless for two years. Pt was residing with her father, who is now . Pt states, she and her mom are going to be moving to [place] in a few weeks. Pt has no source of income and does not receive any food stamp or GR. OPTIONS ADVISOR encouraged pt to apply for both. Pt states, she is planning to once she moves to [place]. Pt has a history of methamphetamine use and last used a week ago. Pt has attended a drug rehab program in [place] a year ago and stayed sober for a while after. Pt denies alcohol use. Pt. reports to use marijuana daily for her seizures. Pt smokes 6 cigarettes per day. Pt denies any history of mental illness. Pt denies SI/HI at this time. OPTIONS ADVISOR provided active listening, supportive counseling and positive coping skills. Pt is interested in homeless resources. OPTIONS ADVISOR provided pt with a homeless packet that contains [facility] [id number] [facility] program list, [facility] [place], [address] [facility] [address] [facility] ; [facility] Homeless Resource Directory which includes food stamps, transitional housing, showers and hot meals etc; Mental Health clinics such as [facility] ; [facility] Mental Health ; Health clinics;[facility] and Alcohol treatment centers such as [facility], ; [facility] Substance Abuse Hotline and [facility] . Homeless Patient waiver form to be signed by the pt upon discharge. Pt will be provided with a TAP card, if needed.
--- NOTE | 2019-11-15 18:47 | NUR ---
MS RN CLOSING NOTES PT REMAINS IN BED, AO X4, AWAKE. PT TOLERATING RA, WITH NO ACUTE RESPIRATORY DISTRESS NOTED. PT DENIES ANY PAIN OR DISCOMFORT AT THIS TIME. PIV TO RAC G18 SL, FLUSHED WITH NS, INTACT AND OPERATIONAL. PT KEPT COMFORTABLE IN BED. ALL NEEDS AND CARE ATTENDED. CALL LIGHT KEPT WITHIN REACH. PT'S BED IN LOWEST, LOCKED POSITION WITH SRX3. WILL ENDORSE TO INCOMING NIGHT NURSE FOR DOREEN.
--- NOTE | 2019-11-15 19:30 | NUR ---
MS RN OPENING NOTES: RECEIVED PT IN BED AND IS A/OX4. NOTED SWELLING ON L AND R ARM. PT COMPLAINING THAT SHE DID NOT RECEIVE ANY ABX TODAY AND THAT SHE IS CONCERNED ABOUT HER ARM. PT WANTING TO GO AMA. EXPLAINED TO PT THAT I WILL CONTACT DR. SPRINGER TO SEE WHAT I CAN DO FOR HER. CLEANED HER L ARM AND COVERED WITH KERLIX FOR NOW. IV REMAINS INTACT ON R AC. BED KEPT IN LOW, LOCKED POSITION, AND SIDE RAILS X 2UP. WILL CONTINUE TO MONITOR PT.
--- NOTE | 2019-11-15 19:45 | NUR ---
RN NOTES: PATROL AGENT AT BEDSIDE. SECURITY ON FLOOR WELL.
--- NOTE | 2019-11-15 19:45 | NUR ---
MS RN NOTES: PT TRYING TO GO AMA. CALLED AND SPOKE WITH DR. SPRINGER AND INFORMED HIM OF HER CONCERN THAT SHE HAS NOT RECEIVED ANY ABX TODAY. GOT ORDER FOR ZOSYN 3.375G IV Q8HR. ENTERED AND CALLED PHARMACY WELL. AWAITING FOR ZOSYN TO BE DELIVERED.
[2019-11-15] MEDS ORDERED: FEE PK DOSING 1 MIN EA MC ONE (20:26)
[2019-11-15 20:52] VITALS: BP 136/89
[2019-11-15] MEDS: VANCOMYCIN 1 GM in IV D5W 250 ML IV SCH (20:53)
[2019-11-15] MEDS ORDERED: PIPERACILLIN /TAZOBACTAM 3.375 G in IV D5W 50 ML IV SCH (21:00)
[2019-11-15] MEDS: PIPERACILLIN /TAZOBACTAM 3.375 G in IV D5W 50 ML IV SCH (22:02)
[2019-11-16] MEDS: PIPERACILLIN /TAZOBACTAM 3.375 G in IV D5W 50 ML IV SCH ×3 (03:03→16:08)
[2019-11-16] MEDS: VANCOMYCIN 1 GM in IV D5W 250 ML IV SCH (05:01)
[2019-11-16 06:41] LABS: BASOPHILS # (AUTO) 0.1 /CMM (0.0-0.2); BASOPHILS % (AUTO) 0.7 % (0.0-2.0); EOSINOPHILS % (AUTO) 3.9 % (0.0-6.0); HEMATOCRIT 40 % (33-45); HEMOGLOBIN 13.5 g/dL (11.5-14.8); LYMPHOCYTES # (AUTO) 1.7 /CMM (0.8-4.8); LYMPHOCYTES % (AUTO) 16.2 % (20.0-44.0); MEAN CORPUSCULAR HGB CONC 34 g/dl (31.0-36.0); MEAN CORPUSCULAR VOLUME 87 fL (82-100); MONOCYTES # (AUTO) 1.2 /CMM (0.1-1.30); MONOCYTES % (AUTO) 11.4 % (2.0-12.0); NEUTROPHILS # (AUTO) 7.3 /CMM (1.8-8.9); NEUTROPHILS % (AUTO) 67.8 % (43.0-81.0); PLATELET COUNT (AUTO) 249 /CMM (150-450); RED BLOOD CELL COUNT(AUTO) 4.59 MIL/uL (4.0-5.2); WHITE BLOOD COUNT (AUTO) 10.7 K/uL (4.3-11.0)
--- NOTE | 2019-11-16 06:46 | NUR ---
MS RN CLOSING NOTES: ALL NEEDS WERE ATTENDED AND ANTICIPATED FOR. PT ON ROOM AIR AND TOLERATING WELL. NO SOB NOTED. NO S/S OF DISTRESS. PT ASLEEP AT THIS TIME AND HAS HER IV ON R AC AND IS BEING INFUSED WITH IV NS AT TKO RATE AT THIS TIME. PT'S WOUND ON LEFT FOREARM WAS CLEANSED WITH NORMAL SALINE AND COVERED WITH GAUZE AND KERLIX AT THIS TIME. BED KEPT IN LOW, LOCKED POSITION. PT REFUSING TO HAVE SIDE RAILS AND BED ALARM ON AT THIS TIME. WILL ENDORSE TO AM NURSE FOR DOREEN.
[2019-11-16 07:19] LABS: CALCIUM, SERUM 8.3 mg/dL (8.5-10.1); CREATININE 0.7 mg/dL (0.6-1.3); POTASSIUM 3.8 mmol/L (3.5-5.1)
--- NOTE | 2019-11-16 07:52 | NUR ---
M/S RN OPENING NOTES RECEIVED PT ON BED, A/OX4 ABLE TO MAKE NEEDS KNOWN. RESPIRATION EVEN AND NON LABORED WITH NO ACUTE RESPIRATORY DISTRESS. ABD SOFT AND NON DISTENDED WITH ACTIVE BOWEL SOUNDS. SKIN WARM TO TOUCH AND DRY. DENIES PAIN AND DISCOMFORT. IV SITE AT RIGHT AC PATENT IN FLUSHING. ALL CONCERNS ATTENDED AT THIS TIME. CALL LIGHT WITHIN REACH. WILL CONTINUE TO EVALUATE CARE.
[2019-11-16 08:00] VITALS: BP 126/60
--- NOTE | 2019-11-16 09:28 | NUR ---
M/S RN NOTES PT SEEN BY DR. SPRINGER
[2019-11-16] MEDS ORDERED: VANCOMYCIN 1 GM in IV D5W 250 ML IV SCH ×2 (13:00→17:00)
--- NOTE | 2019-11-16 15:18 | NUR ---
M/S RN NOTES [facility]. STARTED CONTACT ISOLATION. PT NOTIFIED
[2019-11-16 16:00] VITALS: BP 119/62
[2019-11-16 19:30] VITALS: BP 112/54
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
--- NOTE | 2019-11-16 19:38 | NUR ---
M/S RN NOTES RECEIVED A CALL FROM [facility] FOR NEW ORDER OF TRANSFER OF PATIENT TO [facility]. VERIFIED WITH DR. SPRINGER FOR DISCHARGE ORDER, ORDER READ BACK, NOTED AND CARRIED OUT. PT NOTIFIED. ETA IN 1 HR. SAMANTHA RN NOTIFIED FOR NEXT SHIFT NURSE
--- NOTE | 2019-11-16 21:00 | NUR ---
Photo taken of the left arm wound. MD Umana called and he is aware she is being transfered to [facility]. Patient stated she will call her MOM, I offered. ambulance here, Vital taken Patient is alert and orientated, smiling and is friendly. I called and gave report to the excepting nurse, made them aware she is MRSA + of the nares
== END 2019-11-16 21:00 | disposition short-term general hospital (02) | DRG 383 ==
LOC: ER 05:13 → MEDSG2 12:04
PROVIDERS: ADMIT Internal Medicine; ATTEND Internal Medicine
DX: L03.114 Cellulitis of left upper limb (principal); F17.210 Nicotine dependence, cigarettes, uncomplicated; I10 Essential (primary) hypertension; J45.909 Unspecified asthma, uncomplicated
CPT/HCPCS: 36415; 80048-TC; 80202-TC; 83605-TC; 85025-TC; 87040-TC; 87081-TC; G0378; J2543; J3370; J7050; J7060

== ENCOUNTER 2019-12-17 04:44 | Emergency (ER) | payer MEDICAID ==
[~2019-12-17] VITALS: Ht 160 cm; Wt 63.5 kg
[2019-12-17 04:51] VITALS: BP 144/78
--- NOTE | 2019-12-17 05:10 | NUR ---
RADIOLOGY AT BEDSIDE FOR XRAY
--- NOTE | 2019-12-17 05:58 | NUR ---
Patient discharged to home in stable condition. Written and verbal after care instructions given. Patient verbalizes understanding of instruction.
== END 2019-12-17 05:59 | disposition home or self-care (01) ==
LOC: ER 04:44
DX: S40.011A Contusion of right shoulder, initial encounter (principal); S80.02XA Contusion of left knee, initial encounter; S80.01XA Contusion of right knee, initial encounter; I10 Essential (primary) hypertension; J45.909 Unspecified asthma, uncomplicated; Z86.19 Personal history of other infectious and parasitic diseases; Z98.890 Other specified postprocedural states; W18.39XA Other fall on same level, initial encounter; Y93.89 Activity, other specified; Y92.89 Other specified places as the place of occurrence of the external cause; Y99.8 Other external cause status
CPT/HCPCS: 73030-TC

== ENCOUNTER 2020-12-21 03:05 | Emergency (ER) | payer MEDICAID ==
[~2020-12-21] VITALS: Ht 160 cm; Wt 68.0 kg
[2020-12-21] MEDS ORDERED: KETOROLAC TROMETHAMINE INJ 60 MG/2 ML VIAL IM ONE (03:30)
--- NOTE | 2020-12-21 03:34 | NUR ---
URINE COLLECTED, SENT TO LAB.
[2020-12-21 03:36] LABS: BILIRUBIN,URINE NEGATIVE (NEGATIVE); COLOR,URINE YELLOW (YELLOW); LEUKOCYTE ESTERASE ,URINE TRACE (NEGATIVE); NITRITE, URINE NEGATIVE (NEGATIVE); PROTEIN,URINE TRACE mg/dl (NEGATIVE); UGLUCOSE NEGATIVE (NEGATIVE); UROBILINOGEN,URINE 0.2 EU/dL (0.2)
[2020-12-21 03:49] LABS: BACTERIA,URINE 2+ /HPF (None Seen); MUCUS,URINE Many /LPF (None Seen); SQUAMOUS EPITHELIAL CELL,UR Many /HPF (None Seen); URINE AMORPHOUS URATE Moderate /HPF (None Seen)
[2020-12-21] MEDS ORDERED: KETOROLAC TROMETHAMINE INJ 30 MG/ML VIAL ONE (04:08)
[2020-12-21] MEDS ORDERED: BISA5TAB10 PO (05:04)
[2020-12-21] MEDS ORDERED: KETO10TA2 PO (05:04)
--- NOTE | 2020-12-21 05:08 | NUR ---
Patient discharged to home in stable condition. Written and verbal after care instructions given. Patient verbalizes understanding of instruction. Pt ambulated out of ED. VSS. Denies pain.
[2020-12-21 05:17] VITALS: BP 121/73
== END 2020-12-21 05:18 | disposition home or self-care (01) ==
LOC: ER 03:11
DX: M54.9 Dorsalgia, unspecified (principal); I10 Essential (primary) hypertension; J45.909 Unspecified asthma, uncomplicated; F17.210 Nicotine dependence, cigarettes, uncomplicated; Z98.890 Other specified postprocedural states
CPT/HCPCS: 74176; 81001; 84703; 87086; 96372; 99284; J1885

== ENCOUNTER 2021-01-10 06:14 | Emergency (ER) | payer MEDICAID ==
[~2021-01-10] VITALS: Ht 160 cm; Wt 68.0 kg
[2021-01-10 06:14] VITALS: BP 128/73
[~2021-01-10 06:14] MED LIST: BISA5TAB10 PO; KETO10TA2 PO
--- NOTE | 2021-01-10 07:18 | NUR ---
PATIENT ELOPED FROM ER.
== END 2021-01-10 07:31 | disposition left against medical advice (07) ==
LOC: ER 06:15
DX: R11.2 Nausea with vomiting, unspecified (principal); Z53.21 Procedure and treatment not carried out due to patient leaving prior to being seen by health care provider

== ENCOUNTER 2021-04-19 05:31 | Emergency (ER) | payer MEDICAID ==
[~2021-04-19] VITALS: Ht 160 cm; Wt 78.5 kg
[2021-04-19 05:39] VITALS: BP 115/86
[2021-04-19] MEDS ORDERED: LOPE-195 PO (06:03)
--- NOTE | 2021-04-19 06:09 | NUR ---
Patient provided with bed bath.
--- NOTE | 2021-04-19 06:15 | NUR ---
Patient provided with pants and food.
[2021-04-19] MEDS ORDERED: LOPERAMIDE HCL UDC 2 MG/15 ML LIQUID ONE (06:20)
--- NOTE | 2021-04-19 06:23 | NUR ---
Patient discharged to home in stable condition. Written and verbal after care instructions given. Patient verbalizes understanding of instruction.
--- NOTE | 2021-04-19 06:23 | NUR ---
Patient given written and verbal discharge instructions. Patient verbalizes understanding of instructions. Patient is ambulatory with steady gait. Refuses offer of custodial placement. Patient given list of available shelters in surrounding area.
[2021-04-19] MEDS ORDERED: LOPERAMIDE HCL (2 MG CAP) 2 MG CAPSULE PO ONE (06:30)
== END 2021-04-19 06:25 | disposition home or self-care (01) ==
LOC: ER 05:33
DX: R19.7 Diarrhea, unspecified (principal); I10 Essential (primary) hypertension; J45.909 Unspecified asthma, uncomplicated; F17.210 Nicotine dependence, cigarettes, uncomplicated; Z98.890 Other specified postprocedural states

== ENCOUNTER 2021-09-06 11:53 | Emergency (ER) | payer MEDICAID ==
[~2021-09-06] VITALS: Ht 160 cm; Wt 68.0 kg
[2021-09-06 11:53] VITALS: BP 144/65
[~2021-09-06 11:53] MED LIST changes: +LOPE-195 PO
--- NOTE | 2021-09-06 12:00 | NUR ---
BIBS for c/o chronic bilateral knee pain 04/03. Will continue to monitor the patient.
--- NOTE | 2021-09-06 12:26 | NUR ---
DR PRESSLEY AT THE BEDSIDE
[2021-09-06] MEDS ORDERED: CEPH500C2 PO (12:35)
[2021-09-06] MEDS ORDERED: DICL50TA7 PO (12:35)
--- NOTE | 2021-09-06 12:53 | NUR ---
Patient discharged to home in stable condition. Written and verbal after care instructions given. Patient verbalizes understanding of instruction.
== END 2021-09-06 12:53 | disposition home or self-care (01) ==
LOC: ER 11:56
DX: L03.116 Cellulitis of left lower limb (principal); L03.115 Cellulitis of right lower limb; G89.29 Other chronic pain; M25.561 Pain in right knee; M25.562 Pain in left knee; I10 Essential (primary) hypertension; J45.909 Unspecified asthma, uncomplicated; F17.210 Nicotine dependence, cigarettes, uncomplicated; Z98.890 Other specified postprocedural states; Z79.899 Other long term (current) drug therapy

== ENCOUNTER 2021-09-19 15:13 | Emergency (ER) | payer MEDICAID ==
[~2021-09-19 15:13] MED LIST changes: +CEPH500C2 PO; +DICL50TA7 PO
--- NOTE | 2021-09-19 16:32 | NUR ---
CALLED IN ED WAITING ROOM. NO RESPONSE
--- NOTE | 2021-09-19 16:46 | NUR ---
CALLED IN ED WAITING ROOM. NO RESPONSE.
--- NOTE | 2021-09-19 16:47 | NUR ---
PT LEFT BEFORE TRIAGED
== END 2021-09-19 16:48 | disposition left against medical advice (07) ==
LOC: ER 15:15
DX: Z53.21 Procedure and treatment not carried out due to patient leaving prior to being seen by health care provider (principal); Z76.0 Encounter for issue of repeat prescription

== ENCOUNTER 2022-01-10 03:23 | Emergency (ER) | payer MEDICAID ==
--- NOTE | 2022-01-10 03:45 | NUR ---
PT left before being triaged
== END 2022-01-10 03:45 | disposition left against medical advice (07) ==
LOC: ER 03:23
DX: Z53.21 Procedure and treatment not carried out due to patient leaving prior to being seen by health care provider (principal)

== ENCOUNTER 2022-01-18 23:34 | Emergency (ER) | payer MEDICAID ==
[~2022-01-18] VITALS: Ht 160 cm; Wt 68.0 kg
[2022-01-19 00:13] VITALS: BP 131/76
[2022-01-19] MEDS ORDERED: SULF1TAB48 PO (00:16)
== END 2022-01-19 00:24 | disposition home or self-care (01) ==
LOC: ER 23:34
DX: A49.02 Methicillin resistant Staphylococcus aureus infection, unspecified site (principal); I10 Essential (primary) hypertension; J45.909 Unspecified asthma, uncomplicated; F17.200 Nicotine dependence, unspecified, uncomplicated; Z97.8 Presence of other specified devices; Z79.899 Other long term (current) drug therapy

== ENCOUNTER 2025-04-29 01:33 | Emergency (ER) | payer MEDICAID ==
[~2025-04-29 01:33] MED LIST changes: +SULF1TAB48 PO
== END 2025-04-29 04:03 | disposition left against medical advice (07) ==
LOC: ER 01:33
DX: R05.9 Cough, unspecified (principal); Z53.21 Procedure and treatment not carried out due to patient leaving prior to being seen by health care provider

== ENCOUNTER 2025-05-22 22:35 | Emergency (ER) | payer MEDICAID ==
[~2025-05-22] VITALS: Ht 160 cm; Wt 81.6 kg
[2025-05-22 23:27] LABS: PLATELET COUNT (AUTO) 211 K/uL (150-450); RED BLOOD CELL COUNT(AUTO) 4.73 MIL/uL (4.0-5.2); RED CELL DISTRIBUTION WIDTH 12.9 % (11.5-15.0); WHITE BLOOD COUNT (AUTO) 10.2 K/uL (4.3-11.0)
[2025-05-22] MEDS ORDERED: KETOROLAC TROMETHAMINE INJ 30 MG/ML VIAL ONE (23:32)
[2025-05-22 23:35] LABS: CALCIUM, SERUM 8.7 mg/dL (8.5-10.1); CREATININE 1.0 mg/dL (0.6-1.3); SODIUM SERUM 141.0 mmol/L (136-145); UREA NITROGEN, BLOOD 22.0 mg/dL (7-18)
[2025-05-23 00:01] LABS: ASPARTATE AMINOTRANSFERASE 24.0 U/L (15-37); PREGNANCY TEST SERUM QUAN 1410.0 mIU/mL (0-6); TOTAL PROTEIN, SERUM 7.4 g/dL (6.4-8.2)
[2025-05-23] MEDS: KETOROLAC TROMETHAMINE INJ 30 MG/ML VIAL IM ONE (00:15)
[2025-05-23] MEDS ORDERED: ONDANSETRON HCL/PF 4 MG/2 ML VIAL ONE (01:34)
[2025-05-23] MEDS ORDERED: HYDROMORPHONE 1 MG/1 ML DISP.SYRIN ONE (01:35)
[2025-05-23] MEDS: HYDROMORPHONE 1 MG/1 ML DISP.SYRIN IV ONE (01:44)
[2025-05-23] MEDS: ONDANSETRON HCL/PF - ER 4 MG/2 ML VIAL IV ONE (01:45)
[2025-05-23] MEDS ORDERED: IV NS 0.9% 1,000 ML IV ONE (02:00)
[2025-05-23 02:11] VITALS: BP 118/79; TEMP 98; O2SAT 99
== END 2025-05-23 02:14 | disposition left against medical advice (07) ==
LOC: ER 22:45
DX: O26.892 Other specified pregnancy related conditions, second trimester (principal); O46.8X2 Other antepartum hemorrhage, second trimester; O99.512 Diseases of the respiratory system complicating pregnancy, second trimester; O99.332 Smoking (tobacco) complicating pregnancy, second trimester; F17.200 Nicotine dependence, unspecified, uncomplicated; I10 Essential (primary) hypertension; R10.2 Pelvic and perineal pain; J45.909 Unspecified asthma, uncomplicated; Z86.19 Personal history of other infectious and parasitic diseases; Z3A.14 14 weeks gestation of pregnancy
CPT/HCPCS: 36415; 76856-TC; 80053-TC; 84702-TC; 85025-TC; J1171; J1885; J2405

== ENCOUNTER 2025-05-26 02:06 | Emergency (ER) | payer MEDICAID ==
[~2025-05-26] VITALS: Ht 162.6 cm; Wt 77.1 kg
[2025-05-26 02:34] VITALS: TEMP 98.6
[2025-05-26] MEDS: IV NS 0.9% 1,000 ML BAG IV ONE (02:52)
[2025-05-26] MEDS: ONDANSETRON HCL/PF 4 MG/2 ML VIAL IVP ONE (02:52)
[2025-05-26 03:00] LABS: PLATELET COUNT (AUTO) 181 K/uL (150-450); RED BLOOD CELL COUNT(AUTO) 4.45 MIL/uL (4.0-5.2); RED CELL DISTRIBUTION WIDTH 12.9 % (11.5-15.0); WHITE BLOOD COUNT (AUTO) 5.5 K/uL (4.3-11.0)
[2025-05-26 03:10] LABS: CALCIUM, SERUM 8.4 mg/dL (8.5-10.1); CREATININE 1.0 mg/dL (0.6-1.3); SODIUM SERUM 137.0 mmol/L (136-145); UREA NITROGEN, BLOOD 16.0 mg/dL (7-18)
[2025-05-26] MEDS ORDERED: ONDANSETRON HCL/PF 4 MG/2 ML VIAL ONE (03:11)
[2025-05-26] MEDS ORDERED: MORPHINE SULFATE INJ 2 MG/ML DISP.SYRIN ONE (03:12)
[2025-05-26] MEDS: MORPHINE SULFATE INJ 2 MG/ML DISP.SYRIN IV ONE (03:20)
[2025-05-26 03:30] LABS: PREGNANCY TEST SERUM QUAN 113.0 mIU/mL (0-6)
[2025-05-26 04:12] VITALS: BP 120/79; O2SAT 98
[2025-05-26 06:05] LABS: APPEARANCE,URINE CLEAR (CLEAR); BLOOD, URINE 3+ Ery/uL (NEGATIVE); LEUKOCYTE ESTERASE ,URINE NEGATIVE (NEGATIVE); NITRITE, URINE NEGATIVE (NEGATIVE); UGLUCOSE NEGATIVE (NEGATIVE)
[2025-05-26 06:18] LABS: ADD URINE CULTURE NO; SQUAMOUS EPITHELIAL CELL,UR Many /HPF (None Seen)
== END 2025-05-26 04:12 | disposition home or self-care (01) ==
LOC: ER 02:06
DX: O03.9 Complete or unspecified spontaneous abortion without complication (principal); I10 Essential (primary) hypertension; F17.200 Nicotine dependence, unspecified, uncomplicated; J45.909 Unspecified asthma, uncomplicated; R10.2 Pelvic and perineal pain; Z53.29 Procedure and treatment not carried out because of patient's decision for other reasons; Z86.19 Personal history of other infectious and parasitic diseases; Z60.2 Problems related to living alone; Z79.899 Other long term (current) drug therapy
CPT/HCPCS: 99285; 96374; 76856; 96361; 96375; 85025; 80048; 81001; 36415; 84702; J2405; J2270

== ENCOUNTER 2025-08-05 01:52 | Emergency (ER) | payer MEDICAID ==
[~2025-08-05] VITALS: Ht 167.6 cm; Wt 59.0 kg
[2025-08-05 02:06] VITALS: BP 135/81; TEMP 98.7; O2SAT 98
[2025-08-05] MEDS ORDERED: AMOX500T2 PO (02:54)
== END 2025-08-05 02:58 | disposition home or self-care (01) ==
LOC: ER 01:52
DX: K14.6 Glossodynia (principal); J45.909 Unspecified asthma, uncomplicated; I10 Essential (primary) hypertension; F17.200 Nicotine dependence, unspecified, uncomplicated; Z86.19 Personal history of other infectious and parasitic diseases

== ENCOUNTER 2025-08-27 10:16 | Emergency (ER) | payer MEDICAID, OTHER ==
[~2025-08-27] VITALS: Ht 160 cm; Wt 77.1 kg
[~2025-08-27 10:16] MED LIST changes: +AMOX500T2 PO
[2025-08-27] MEDS ORDERED: ONDANSETRON HCL/PF 4 MG/2 ML VIAL ONE (10:49)
[2025-08-27] MEDS: IV NS 0.9% 1,000 ML BAG IV ONE (10:56)
[2025-08-27] MEDS: ONDANSETRON HCL/PF 4 MG/2 ML VIAL IVP ONE (10:56)
[2025-08-27] MEDS ORDERED: ONDA4TAB5 PO (11:00)
[2025-08-27] MEDS ORDERED: POLY17PO4 PO (11:00)
[2025-08-27 11:17] VITALS: BP 127/78; TEMP 98; O2SAT 95
== END 2025-08-27 11:18 | disposition home or self-care (01) ==
LOC: ER 10:26
DX: R10.84 Generalized abdominal pain (principal); K59.00 Constipation, unspecified; R11.2 Nausea with vomiting, unspecified; I10 Essential (primary) hypertension; F17.200 Nicotine dependence, unspecified, uncomplicated; J45.909 Unspecified asthma, uncomplicated; Z86.19 Personal history of other infectious and parasitic diseases; Z87.59 Personal history of other complications of pregnancy, childbirth and the puerperium; Z53.29 Procedure and treatment not carried out because of patient's decision for other reasons
CPT/HCPCS: 99283; J7030; J2405